=== PATIENT | female | born 1965 | race Caucasian/White ===

== ENCOUNTER → 2017-03-09 | Outpatient (CLI) | payer MEDICAID ==
[2017-03-09 17:57] LABS: Basophils # (A) 0.1 k/uL (0-0.2); Basophils % (A) 1 %; CH 29.1; CHCM 33.1; Eosinophils # (A) 0.9 k/uL (0-0.7); Eosinophils % (A) 12 %; HCT 37.5 % (34.0-46.0); HDW 2.47; HGB 12.3 gm/dL (11.4-16.0); Luc # (Auto) 0.24; Luc % (Auto) 3; Lymphocytes % (A) 39 %; MCHC 32.8 g/dL (31.0-37.0); MCV 88.5 fL (80.0-100.0); Monocytes # (A) 0.3 k/uL (0-1.0); Monocytes % (A) 4 %; Neutrophils # (A) 3.1 k/uL (1.3-7.7); Neutrophils % (A) 41 %; RBC 4.24 m/uL (3.80-5.40); RDW 14.3 % (11.5-15.5); WBC 7.6 k/uL (3.8-10.6); WBC (Perox) 8.11
[2017-03-09 18:17] LABS: C Reactive Protein <5.0 mg/L (<10.0); LDH 417 U/L (313-618); Uric Acid 4.7 mg/dL (3.7-7.4)
[2017-03-09 20:42] LABS: Erythrocyte Sedimentation Rate 8 mm/hr (0-20)
[2017-03-11 06:07] LABS: Aldolase 2.8 U/L (1.2-7.6)
== END ==
LOC: LABWHC1 17:30
PROVIDERS: ATTEND Family Medicine
DX: M70.60 Trochanteric bursitis, unspecified hip (principal); M76.60 Achilles tendinitis, unspecified leg; M62.81 Muscle weakness (generalized)
CPT/HCPCS: 36415; 82085; 83615; 84550; 85025; 85652; 86038; 86140; 86200

== ENCOUNTER → 2017-03-31 | Outpatient (CLI) | payer MEDICAID ==
--- NOTE | 2017-03-31 15:52 | BD ---
EXAMINATION TYPE: MG DEXA axial skeleton. DATE OF EXAM: 03/31/2017 11:18 AM COMPARISON: NONE CLINICAL HISTORY: M89.9 DISORDER OF BONE Height: 64 Weight: 218 FRAX RISK QUESTIONS: Alcohol (3 or more units per day): NO Family History (Parent hip fracture): NONE KNOWN Glucocorticoids (More than 3mos): YES (Ex: prednisone, prednisolone, methylprednisolone, dexamethasone, and hydrocortisone). History of Fracture in Adulthood: NO...UNDER 50 YRS ONLY Secondary Osteoporosis: NO 1. Type 1 Diabetes: NO 2. Hyperthyroidism: NO 3. Menopause before 45: YES 4. Malnutrition: NO 5. Chronic liver disease: NO Rheumatoid Arthritis: NO Current Tobacco Use: NO RISK FACTORS HISTORY OF: Other Fractures since Age 50: ONLY RT FOOT < AGE OF 50 When: <50 YRS OLD Family History of Osteoporosis: NONE KNOWN Smoke tobacco: NO Drink Alcohol: SOCIAL Active: YES Diet low in dairy products/other sources of calcium: NO Postmenopausal woman: YES AT AGE 38 YRS OLD Adrenal Insufficiency: NO MEDICATIONS: Prednisone or other steroids: JUST FINISHED DOSE PAC OF PREDNISONE How Long: ON AND OFF FOR PAIN, INFLAMATION Additional Medications: BP MEDS, ORAL DIABETIC MEDS, CELEXA, VIT D, STATINS FOR CHOLESTEROL Additional History: DIABETIC, EXAM MEASUREMENTS: Bone mineral densitometry was performed using the [employer]. Bone mineral density as measured about the Lumbar spine is: ----- L1-L4(G/cm2): 1.331 T Score Values are as follows: ----- L1: 1.0 ----- L2: 1.1 ----- L3: 1.8 ----- L4: 1.0 ----- L1-L4: 1.3 Bone mineral density THIS IS HER FIRST BONE DENSITY TEST.....BASELINE STUDY Bone mineral density about the R hip (g/cm2): 1.206 Bone mineral density about the L hip (g/cm2): 1.210 T Score values are as follows: -----R Neck: 0.5 -----L Neck: 0.2 -----R Total: 1.6 -----L Total: 1.6 Bone mineral density FIRST SCAN....BASELINE STUDY FRAX %'S: 3.5% CHANCE OF A MAJOR OSTEOPOROSIS FX AND A 0.0% CHANCE FOR A HIP FX.....PROBABILITY O F FX IN 10 YRS TIME IMPRESSION: Normal (Values between +1 and -1 indicate normal bone mass). Consider repeating this study in 5 year s or sooner if there is some new clinical indication. NOTE: T-SCORE=SD OF THE YOUNG ADULT MEAN.
--- NOTE | 2017-04-17 09:30 | MM ---
Reason for exam: screening (asymptomatic). Last mammogram was performed 1 year and 7 months ago. Physical Findings: A clinical breast exam by your physician is recommended on an annual basis and results should be correlated with mammographic findings. MG 3D Screening Mammo W/Cad Bilateral CC and MLO view(s) were taken. Prior study comparison: September 07, 2015, mammogram, performed at [place]. September 03, 2014, mammogram, performed at [place]. There are scattered fibroglandular densities. There is no discrete abnormality. ASSESSMENT: Negative, BI-RAD 1 RECOMMENDATION: Routine screening mammogram of both breasts in 1 year.
== END | disposition home or self-care (01) ==
LOC: RADMAMWWP 10:21
PROVIDERS: ATTEND Family Medicine
DX: Z12.31 Encounter for screening mammogram for malignant neoplasm of breast (principal); M89.9 Disorder of bone, unspecified; Z78.0 Asymptomatic menopausal state
CPT/HCPCS: 77080; 77063; G0202

== ENCOUNTER → 2017-09-22 | Outpatient (CLI) | payer MEDICAID ==
[2017-09-22 12:47] LABS: Basophils # (A) 0.1 k/uL (0-0.2); Basophils % (A) 1 %; CH 28.5; CHCM 32.2; Eosinophils # (A) 0.5 k/uL (0-0.7); Eosinophils % (A) 7 %; HCT 41.2 % (34.0-46.0); HDW 2.59; HGB 13.1 gm/dL (11.4-16.0); Luc # (Auto) 0.15; Luc % (Auto) 2; Lymphocytes # (A) 2.4 k/uL (1.0-4.8); Lymphocytes % (A) 33 %; MCH 28.1 pg (25.0-35.0); MCHC 31.7 g/dL (31.0-37.0); MCV 88.8 fL (80.0-100.0); Mean Platelet Volume 7.4; Monocytes # (A) 0.4 k/uL (0-1.0); Monocytes % (A) 5 %; Neutrophils # (A) 3.8 k/uL (1.3-7.7); Neutrophils % (A) 52 %; RBC 4.64 m/uL (3.80-5.40); RDW 14.1 % (11.5-15.5); WBC 7.2 k/uL (3.8-10.6); WBC (Perox) 7.48
[2017-09-22 12:57] LABS: ALT 31 U/L (9-52); AST 21 U/L (14-36); Alkaline Phosphatase 64 U/L (38-126); Anion Gap 7 mmol/L; Blood Urea Nitrogen 17 mg/dL (7-17); Calcium 9.3 mg/dL (8.4-10.2); Carbon Dioxide 27 mmol/L (22-30); Chloride 106 mmol/L (98-107); Cholesterol 182 mg/dL (<200); Glucose 116 mg/dL (74-99); HDL Cholesterol 66 mg/dL (40-60); Non-African American GFR(MDRD) >60 (>60 ml/min/1.73 sqM); Potassium 4.7 mmol/L (3.5-5.1); Sodium 140 mmol/L (137-145); Total Bilirubin 0.4 mg/dL (0.2-1.3); Total Protein 6.9 g/dL (6.3-8.2)
== END | disposition home or self-care (01) ==
LOC: LABWHC1 12:05
PROVIDERS: ATTEND Family Medicine
DX: E78.5 Hyperlipidemia, unspecified (principal); I10 Essential (primary) hypertension; E11.65 Type 2 diabetes mellitus with hyperglycemia
CPT/HCPCS: 36415; 80053; 80061; 82607; 83036; 84443; 85025

== ENCOUNTER → 2018-09-18 | Outpatient (CLI) | payer MEDICAID ==
[2018-09-18 14:36] LABS: Basophils % (A) 1 %; Eosinophils # (A) 0.3 k/uL (0-0.7); Eosinophils % (A) 4 %; HCT 39.2 % (34.0-46.0); HGB 13.3 gm/dL (11.4-16.0); Lymphocytes # (A) 2.1 k/uL (1.0-4.8); Lymphocytes % (A) 29 %; MCH 30.9 pg (25.0-35.0); MCV 90.9 fL (80.0-100.0); Mean Platelet Volume 7.8; Monocytes # (A) 0.4 k/uL (0-1.0); Monocytes % (A) 5 %; Neutrophils # (A) 4.3 k/uL (1.3-7.7); Neutrophils % (A) 60 %; Platelet Count 202 k/uL (150-450); RBC 4.31 m/uL (3.80-5.40); RDW 13.2 % (11.5-15.5); WBC 7.2 k/uL (3.8-10.6)
[2018-09-18 21:36] LABS: Albumin 4.1 g/dL (3.80-4.90); Albumin/Globulin Ratio 2.41 (1.20-2.10); Calcium 8.9 mg/dL (8.7-10.3); Globulin 1.7 g/dL (2.1-3.7); LDL Cholesterol,Calculated 86.2 mg/dL (0.0-131.0); Potassium 4.4 mmol/L (3.5-5.5); Total Bilirubin 0.5 mg/dL (0.3-1.2); Total Protein 5.8 g/dL (6.2-8.2); VLDL Calculation 14.8 mg/dL (5.00-40.00)
[2018-09-18 21:43] LABS: T4, Free (Free Thyroxine) 0.9 ng/dL (0.80-1.80)
== END | disposition home or self-care (01) ==
LOC: LABWHC1 11:49
PROVIDERS: ATTEND Family Medicine
DX: E78.5 Hyperlipidemia, unspecified (principal); E11.65 Type 2 diabetes mellitus with hyperglycemia; Z68.34 Body mass index [BMI] 34.0-34.9, adult
CPT/HCPCS: 36415; 80053; 80061; 82607; 83036; 84439; 84443; 85025

== ENCOUNTER → 2019-02-25 | Outpatient (CLI) | payer MEDICAID ==
[2019-02-25 08:26] LABS: HCT 39.6 % (34.0-46.0); HGB 13.5 gm/dL (11.4-16.0); MCH 30.6 pg (25.0-35.0); MCV 90.1 fL (80.0-100.0); Mean Platelet Volume 7.2; Platelet Count 219 k/uL (150-450); RBC 4.39 m/uL (3.80-5.40); RDW 14.2 % (11.5-15.5); WBC 10.7 k/uL (3.8-10.6)
[2019-02-25 09:27] LABS: Eosinophils # (M) 4.17 k/uL (0-0.7); Lymphocytes # (M) 2.78 k/uL (1.0-4.8); Monocytes # (M) 0.43 k/uL (0-1.0); Neutrophils # (M) 3.32 k/uL (1.3-7.7); Neutrophils % (M) 31 %; Nucleated Red Blood Cells 0 /100 WBC (0-0); Total Cells Counted 200
[2019-02-25 16:47] LABS: Vitamin D 25 Hydroxy 31.7 ng/mL (30.0-100.0)
[2019-02-25 17:06] LABS: Albumin 3.7 g/dL (3.80-4.90); Albumin/Globulin Ratio 3.08 (1.60-3.17); Anion Gap 3.1 mmol/L (4.00-12.00); Calcium 8.9 mg/dL (8.7-10.3); Carbon Dioxide 27.9 mmol/L (21.6-31.8); Globulin 1.2 g/dL (1.6-3.3); LDL Cholesterol,Calculated 120.6 mg/dL (0.0-131.0); Potassium 4.3 mmol/L (3.5-5.5); Total Bilirubin 0.3 mg/dL (0.2-1.2); Total Protein 4.9 g/dL (6.2-8.2); VLDL Calculation 22.4 mg/dL (5.00-40.00)
[2019-02-25 20:25] LABS: Hemoglobin A1C 6.3 % (4.0-6.0)
[2019-02-26 11:07] LABS: Immunoglobulin A 76.5 mg/dL (60.0-350.0); Immunoglobulin M <16.9 mg/dL (40.0-280.0)
== END | disposition home or self-care (01) ==
LOC: LABWHC1 07:25
PROVIDERS: ATTEND Family Medicine
DX: E11.65 Type 2 diabetes mellitus with hyperglycemia (principal); E78.5 Hyperlipidemia, unspecified; I10 Essential (primary) hypertension
CPT/HCPCS: 36415; 80053; 80061; 82306; 82550; 82784; 82785; 83036; 84439; 84443; 85025

== ENCOUNTER → 2019-09-23 | Outpatient (CLI) | payer MEDICAID ==
[2019-09-23 17:05] LABS: Follicle Stimulating Hormone 75.4 mIU/mL
== END | disposition home or self-care (01) ==
LOC: LABWHC1 11:00
PROVIDERS: ATTEND Obstetrics & Gynecology
DX: N95.1 Menopausal and female climacteric states (principal); Z78.0 Asymptomatic menopausal state
CPT/HCPCS: 36415; 82670; 83001; 84144; 84403

== ENCOUNTER → 2019-12-09 | Outpatient (CLI) | payer MEDICAID ==
--- NOTE | 2019-12-10 07:26 | MM ---
Reason for exam: additional evaluation requested from prior study. Last mammogram was performed 2 years and 8 months ago. History: Taking estrogen for 2 months beginning at age 54. Physical Findings: Nurse did not find any significant physical abnormalities on exam. MG 3D Diag Mammo W/Cad JOSE Bilateral CC and MLO view(s) were taken. Prior study comparison: March 31, 2017, bilateral MG 3d screening mammo w/cad. September 07, 2015, mammogram, performed at [place]. The breast tissue is heterogeneously dense. This may lower the sensitivity of mammography. There is a 4mm central slightly upper left mass in the lateral breast at middle depth. No suspicious abnormality on the right. These results were verbally communicated with the patient and result sheet given to the patient on 12/09/19. ASSESSMENT: Incomplete: need additional imaging evaluation, BI-RAD 0 RECOMMENDATION: Ultrasound of the left breast.
--- NOTE | 2019-12-10 07:28 | USB ---
Reason for exam: additional evaluation requested from abnormal screening. History: Taking estrogen for 2 months beginning at age 54. US Breast Limited LT Left limited breast ultrasound including focal area of concern, retroareolar and axilla demonstrates a 0.5 x 0.2 x 0.5cm oval, cystic lesion at 3 o'clock, correspond with mammogram. These results were verbally communicated with the patient and result sheet given to the patient on 12/09/19. ASSESSMENT: Benign, BI-RAD 2 RECOMMENDATION: Routine screening mammogram of both breasts in 1 year.
--- NOTE | 2019-12-10 11:39 | BD ---
EXAMINATION TYPE: Axial Bone Density DATE OF EXAM: 12/09/2019 COMPARISON: 03/31/2017 CLINICAL HISTORY: N 95.1 Height: 64 IN Weight: 202 LBS FRAX RISK QUESTIONS: Secondary Osteoporosis: 3. Menopause before 45: PARTIAL HYST AGE 38 RISK FACTORS HISTORY OF: Active: YES Postmenopausal woman: AGE 38 PARTIAL HYST Take estrogen and/or progesterone medications: YES How lon MONTHS MEDICATIONS: Additional Medications: DIABETES MEDS, MIGRAINES, HORMONES EXAM MEASUREMENTS: Bone mineral densitometry was performed using the [employer]. Bone mineral density as measured about the Lumbar spine is: ----- L1-L4(G/cm2): 1.272 T Score Values are as follows: ----- L2: 0.7 ----- L3: 1.0 ----- L4: 0.6 ----- L1-L4: 0.8 Bone mineral density has: Decreased -4.7% since study of: 03/31/2017 Bone mineral density about the R hip (g/cm2): 1.059 Bone mineral density about the L hip (g/cm2): 1.034 T Score values are as follows: -----R Neck: 0.2 -----L Neck: 0.0 -----R Total: 1.1 -----L Total: 1.0 Bone mineral density has: Decreased -5.6% since study of: 03.31.2017 IMPRESSION: Normal (Values between +1 and -1 indicate normal bone mass). Consider repeating this study in 5 year s or sooner if there is some new clinical indication. NOTE: T-SCORE=SD OF THE YOUNG ADULT MEAN.
== END | disposition home or self-care (01) ==
LOC: RADMAMWWP 15:10
PROVIDERS: ATTEND Family Medicine
DX: N63.10 Unspecified lump in the right breast, unspecified quadrant (principal); R92.8 Other abnormal and inconclusive findings on diagnostic imaging of breast; N95.1 Menopausal and female climacteric states
CPT/HCPCS: 77062; 77066; 77080

== ENCOUNTER → 2020-03-24 | Outpatient (CLI) | payer MEDICAID ==
[2020-03-24 15:58] LABS: Estradiol 42.6 pg/mL; Follicle Stimulating Hormone 60.9 mIU/mL
== END | disposition home or self-care (01) ==
LOC: LABWHC1 09:01
PROVIDERS: ATTEND Obstetrics & Gynecology
DX: N95.1 Menopausal and female climacteric states (principal); R61 Generalized hyperhidrosis; R53.83 Other fatigue; E34.50 Androgen insensitivity syndrome, unspecified
CPT/HCPCS: 36415; 82670; 83001; 84403

== ENCOUNTER → 2020-08-12 | Outpatient (CLI) | payer MEDICAID ==
[2020-08-12 12:50] LABS: Basophils % (A) 1 %; Eosinophils % (A) 15 %; HCT 41.8 % (34.0-46.0); HGB 13.8 gm/dL (11.4-16.0); Lymphocytes # (A) 1.9 k/uL (1.0-4.8); Lymphocytes % (A) 30 %; MCH 29.4 pg (25.0-35.0); MCV 89.3 fL (80.0-100.0); Mean Platelet Volume 8.3; Monocytes # (A) 0.4 k/uL (0-1.0); Monocytes % (A) 6 %; Neutrophils # (A) 2.9 k/uL (1.3-7.7); Neutrophils % (A) 46 %; Platelet Count 189 k/uL (150-450); RBC 4.68 m/uL (3.80-5.40); RDW 13.7 % (11.5-15.5); WBC 6.3 k/uL (3.8-10.6)
[2020-08-12 22:26] LABS: African American GFR (CKD) 96.9 (60.0-200.0); Albumin/Globulin Ratio 2.67 (1.60-3.17); Anion Gap 8.8 mmol/L (4.00-12.00); Calcium 8.6 mg/dL (8.7-10.3); Carbon Dioxide 23.2 mmol/L (21.6-31.8); Chol/HDL Ratio 2.85; Globulin 1.5 g/dL (1.6-3.3); Non-African American GFR(CKD) 83.6 (60.0-200.0); Potassium 4.5 mmol/L (3.5-5.5); Total Bilirubin 0.6 mg/dL (0.2-1.2); Total Protein 5.5 g/dL (6.2-8.2)
[2020-08-13 01:01] LABS: Hemoglobin A1C 6.3 % (4.0-6.0)
== END | disposition home or self-care (01) ==
LOC: LABWHC1 10:51
PROVIDERS: ATTEND Nurse Practitioner Family
DX: E78.5 Hyperlipidemia, unspecified (principal); E11.65 Type 2 diabetes mellitus with hyperglycemia; E03.9 Hypothyroidism, unspecified
CPT/HCPCS: 36415; 80053; 80061; 83036; 84443; 85025

== ENCOUNTER → 2020-12-16 | Outpatient (CLI) | payer MEDICAID ==
--- NOTE | 2020-12-16 14:45 | US ---
EXAMINATION TYPE: US thyroid st tissue head/neck DATE OF EXAM: 12/16/2020 COMPARISON: NONE CLINICAL HISTORY: E04.1 THYROID NODULE. palpable right gland nodule GLAND SIZE: Right Lobe: 4.4 x 1.4 x 1.4 cm Overall Parenchyma: homogenous Left Lobe: 3.3 x 0.7 x 0.9 cm Overall Parenchyma: homogeneous Isthmus Thickness: 0.3 cm NODULES RIGHT: # of nodules measured on right: 1 1. 1.7 X 1.6 x 1.1 cm mixed cystic and solid, anechoic nodule, which is wider than tall, with smoo th margins, without echogenic foci. Prior size: no previous LEFT: # of nodules measured on left: 0 ISTHMUS: # of nodules measured in the isthmus: 0 Bilateral neck scanned, no evidence of lymphadenopathy. IMPRESSION: Benign findings. Monitoring can be performed if there is interval change. 2017 ACR TI-RADS LEVEL: 2 *Highest TI-RADS level nodule reported
== END | disposition home or self-care (01) ==
LOC: RADUSWWP 09:38
PROVIDERS: ATTEND Family Medicine
DX: E04.1 Nontoxic single thyroid nodule (principal)
CPT/HCPCS: 76536

== ENCOUNTER → 2021-01-20 | Outpatient (CLI) | payer MEDICAID ==
--- NOTE | 2021-01-21 13:43 | MM ---
Reason for exam: screening (asymptomatic). Last mammogram was performed 1 year and 1 month ago. History: Taking estrogen for 2 months beginning at age 54. Physical Findings: A clinical breast exam by your physician is recommended on an annual basis and results should be correlated with mammographic findings. MG 3D Screening Mammo W/Cad Bilateral CC and MLO view(s) were taken. Prior study comparison: December 09, 2019, bilateral MG 3d diag mammo w/cad [facility]. March 31, 2017, bilateral MG 3d screening mammo w/cad. The breast tissue is heterogeneously dense. This may lower the sensitivity of mammography. No significant changes when compared with prior studies. ASSESSMENT: Benign, BI-RAD 2 RECOMMENDATION: Routine screening mammogram of both breasts in 1 year.
== END | disposition home or self-care (01) ==
LOC: RADMAMWWP 09:27
PROVIDERS: ATTEND Obstetrics & Gynecology
DX: Z12.31 Encounter for screening mammogram for malignant neoplasm of breast (principal)
CPT/HCPCS: 77063; 77067

== ENCOUNTER → 2021-10-27 | Outpatient (CLI) | payer MEDICAID ==
[2021-10-27 10:34] LABS: Appearance,Urine Cloudy (Clear); Bacteria,Urine Rare /hpf; Bilirubin,Urine Negative (Negative); Blood,Urine Negative (Negative); Color,Urine Yellow; Glucose,Urine (UA) Negative (Negative); Hyaline Casts,Urine 1 /lpf (0-2); Ketones,Urine Negative (Negative); Leukocyte Esterase,Urine Trace (Negative); Mucus,Urine Few /hpf; Nitrite,Urine Negative (Negative); PH, Urine 5.5 (5.0-8.0); Protein,Urine Trace (Negative); RBC,Urine 1 /hpf (0-5); Specific Gravity,Urine 1.034 (1.001-1.035); Squamous Epithelial Cell,Urine 6 /hpf (0-4); Urobilinogen,Urine <2.0 mg/dL (<2.0); WBC,Urine 2 /hpf (0-5)
[2021-10-27 15:01] LABS: Basophils # (A) 0.07 X 10*3/uL (0.00-0.10); Basophils % (A) 0.9 %; Eosinophils # (A) 0.27 X 10*3/uL (0.04-0.35); Eosinophils % (A) 3.4 %; HCT 40.5 % (37.2-46.3); HGB 13.4 g/dL (12.0-15.0); Lymphocytes # (A) 2.02 X 10*3/uL (0.90-5.00); Lymphocytes % (A) 25.6 %; MCH 30.5 pg (27.0-32.0); MCHC 33.1 g/dL (32.0-37.0); Mean Platelet Volume 11.2 fL (9.5-12.2); Monocytes # (A) 0.64 X 10*3/uL (0.20-1.00); Monocytes % (A) 8.1 %; Neutrophils # (A) 4.87 X 10*3/uL (1.80-7.70); Neutrophils % (A) 61.6 %; Platelet Count 193 X 10*3/uL (140-440); RDW 12.3 % (11.5-14.5)
[2021-10-27 16:12] LABS: ALT 23 U/L (8-44); AST 19 U/L (13-35); African American GFR (CKD) 115.1 (60.0-200.0); Albumin 4.3 g/dL (3.8-4.9); Albumin/Globulin Ratio 2.44 (1.60-3.17); Alkaline Phosphatase 46 U/L (41-126); BUN/Creat Ratio 34.09 Ratio (12.00-20.00); Blood Urea Nitrogen 22.6 mg/dL (9.0-27.0); Calcium 9.4 mg/dL (8.7-10.3); Carbon Dioxide 24.4 mmol/L (20.0-27.5); Chloride 105 mmol/L (96-109); Chol/HDL Ratio 3.36 Ratio; Creatine Kinase 67 U/L (26-186); Globulin 1.7 g/dL (1.6-3.3); Glucose 98 mg/dL (70-110); LDL Cholesterol,Calculated 92.7 mg/dL (0.0-131.0); Non-African American GFR(CKD) 99.3 (60.0-200.0); Potassium 4.7 mmol/L (3.5-5.5); Sodium 139 mmol/L (135-145); Uric Acid 3.4 mg/dL (2.9-7.7)
[2021-10-27 17:24] LABS: Erythrocyte Sedimentation Rate 4 mm/Hr (0-30)
[2021-10-27 18:39] LABS: Immunoglobulin M 43.4 mg/dL (40.0-280.0)
[2021-10-27 18:52] LABS: Follicle Stimulating Hormone 8.9 mIU/mL
[2021-10-27 22:02] LABS: Immunoglobulin E 6.17 IU/mL (0.00-114.00)
[2021-10-27 22:03] LABS: Progesterone <0.05 ng/mL
[2021-10-27 22:54] LABS: Microalbumin Creatinine Ratio <30 mg/g Creat (0-30)
== END | disposition home or self-care (01) ==
LOC: LABWHC1 09:43
PROVIDERS: ATTEND Obstetrics & Gynecology
DX: I10 Essential (primary) hypertension (principal); E78.5 Hyperlipidemia, unspecified; E11.65 Type 2 diabetes mellitus with hyperglycemia; E03.9 Hypothyroidism, unspecified; G43.909 Migraine, unspecified, not intractable, without status migrainosus; N95.1 Menopausal and female climacteric states
CPT/HCPCS: 36415; 80053; 80061; 81001; 82043; 82306; 82550; 82570; 82607; 82670; 82784; 82785; 83001; 83036; 84144; 84403; 84439; 84443; 84550; 85025; 85652

== ENCOUNTER → 2022-02-24 | Outpatient (CLI) | payer MEDICAID ==
--- NOTE | 2022-02-24 13:03 | XR ---
EXAMINATION TYPE: XR chest 2V DATE OF EXAM: 02/24/2022 COMPARISON: NONE HISTORY: Difficulty breathing for one to 2 weeks TECHNIQUE: Frontal and lateral views of the chest are obtained. FINDINGS: Unremarkable lungs. No pleural effusion or pneumothorax. No gross cardiomegaly. No gross a ggressive bone lesion. Degenerative changes of the lower thoracic spine. IMPRESSION: No significant pulmonary abnormality identified.
== END | disposition home or self-care (01) ==
LOC: RADXRMAIN 08:55
PROVIDERS: ATTEND Nurse Practitioner Family
DX: J06.9 Acute upper respiratory infection, unspecified (principal)
CPT/HCPCS: 71046

== ENCOUNTER → 2022-03-18 | Outpatient (CLI) | payer MEDICAID ==
--- NOTE | 2022-03-21 11:55 | MM ---
Reason for exam: screening (asymptomatic). Last mammogram was performed 1 year and 2 months ago. History: Taking estrogen for 2 months beginning at age 54. Physical Findings: A clinical breast exam by your physician is recommended on an annual basis and results should be correlated with mammographic findings. MG 3D Screening Mammo W/Cad Bilateral CC and MLO view(s) were taken. Prior study comparison: January 20, 2021, bilateral MG 3d screening mammo w/cad. December 09, 2019, bilateral MG 3d diag mammo w/cad [facility]SE. There are scattered fibroglandular densities. There is no discrete abnormality. ASSESSMENT: Negative, BI-RAD 1 RECOMMENDATION: Routine screening mammogram of both breasts in 1 year.
== END | disposition home or self-care (01) ==
LOC: RADMAMWWP 11:20
PROVIDERS: ATTEND Obstetrics & Gynecology
DX: Z12.31 Encounter for screening mammogram for malignant neoplasm of breast (principal)
CPT/HCPCS: 77063; 77067

== ENCOUNTER → 2023-06-28 | Outpatient (CLI) | payer BC ==
--- NOTE | 2023-06-29 08:49 | MM ---
Reason for Exam: Screening (asymptomatic). Last mammogram was performed 1 year(s) and 3 month(s) ago. Patient History: Menarche at age 13. First Full-Term at age 18. Right ovary removed at age 38. Hysterectomy at age 38. Postmenopausal. Currently using Estrogen, for 2 months. Risk Values: Sharonda 5 year model risk: 0.9%. NCI Lifetime model risk: 5.7%. Prior Study Comparison: 09/07/2015 Screening Mammogram, [place]. 03/31/2017 Bilateral Screening Mammogram, [facility]. 12/09/2019 Bilateral Diagnostic Mammogram, [facility]. 01/20/2021 Bilateral Screening Mammogram, [facility]. 03/18/2022 Bilateral Screening Mammogram, [facility]. Tissue Density: The breast tissue is heterogeneously dense. This may lower the sensitivity of mammography. Findings: Analyzed By CAD. There is no suspicious group of microcalcifications or new suspicious mass in either breast. Overall Assessment: Negative, BI-RAD 1 Management: Screening Mammogram of both breasts in [address] [facility] will attempt to contact patient to return for supplemental views and ultrasound if indicated. Patient should continue monthly self-breast exams. A clinical breast exam by your physician is recommended on an annual basis. This exam should not preclude additional follow-up of suspicious palpable abnormalities. Note on Sharonda scores and lifetime risk: 1. A Sharonda score greater than 3% is considered moderate risk. If this is the case, consider specialist referral to assess eligibility for a risk reducing agent. 2. If overall lifetime risk for the development of breast cancer is 20% or higher, the patient may qualify for future screening with alternating mammogram and breast MRI. Electronically signed and approved by: Ernst Roche DO
== END | disposition home or self-care (01) ==
LOC: RADMAMWWP 09:59
PROVIDERS: ATTEND Obstetrics & Gynecology
DX: Z12.31 Encounter for screening mammogram for malignant neoplasm of breast (principal); Z78.0 Asymptomatic menopausal state
CPT/HCPCS: 77063; 77067